=== PATIENT | female | born 1990 | race Hispanic/Latino ===

== ENCOUNTER 2017-04-19 19:20 | Emergency (ER) | payer BC, OTHER ==
[2017-04-19 20:03] VITALS: BP 143/99
[2017-04-19 20:31] LABS: Basophils % (Auto) 0.9 % (0.0-1.8); Eosinophils % (Auto) 1.3 % (0.0-4.3); Hematocrit 41.1 % (30.3-42.9); Hemoglobin 13.9 gm/dl (10.1-14.3); Mean Corpuscular HGB Conc 34 % (30-34); Mean Corpuscular Hemoglobin 30 pg (28-32); Mean Corpuscular Volume 88 fl (79-97); Platelet Count 248 K/mm3 (140-440); Red Blood Count 4.66 M/mm3 (3.65-5.03); Red Cell Distribution Width 13.2 % (13.2-15.2); White Blood Count 13.2 K/mm3 (4.5-11.0)
--- NOTE | 2017-04-19 20:32 | Cat Scan Report ---
FINAL REPORT PROCEDURE: CT HEAD/BRAIN WO CON TECHNIQUE: Computerized tomography of the head was performed without contrast material. HISTORY: neuro deficits \T\lt; 6hrs or sx present upon awakening COMPARISON: No prior studies are available for comparison. FINDINGS: Skull and scalp: Normal. Paranasal sinuses: A polypoid lesion measuring 1.3 x 1.6 centimeters is noted in the right maxillary sinus most likely representing a mucous retention cyst. Ventricles and subarachnoid spaces: Normal. Cerebrum: No evidence of hemorrhage, acute infarction or mass . Cerebellum and brainstem: No evidence of hemorrhage, acute infarction or mass. Vasculature: Normal. Comments: None. IMPRESSION: No acute intracranial abnormality
[2017-04-19 20:42] LABS: Creatine Kinase MB < 1.0 ng/mL (0.0-4.0)
[2017-04-19 20:43] LABS: Anion Gap 17 mmol/L; BUN/Creatinine Ratio 8.75; Blood Urea Nitrogen 7 mg/dL (7-17); Carbon Dioxide 22 mmol/L (22-30); Chloride 104.1 mmol/L (98-107); Glucose 99 mg/dL (65-100); Potassium 3.2 mmol/L (3.6-5.0); Sodium 140 mmol/L (137-145)
[2017-04-19 20:45] LABS: Erythrocyte Sedimentation Rate 14 mm/Hr (0-20)
[2017-04-19 20:46] LABS: Creatine Kinase 82 units/L (30-135)
[2017-04-19 21:33] LABS: INR 1.11 (0.87-1.13)
== END 2017-04-20 03:00 | disposition left against medical advice (07) ==
LOC: ED 19:20
DX: F41.0 Panic disorder [episodic paroxysmal anxiety] (principal); Z53.21 Procedure and treatment not carried out due to patient leaving prior to being seen by health care provider
CPT/HCPCS: 36415; 70450; 80048; 82140; 82550; 82553; 83880; 84439; 84443; 84484; 84703; 85025; 85610; 85652; 85670; 85730; 86140; 93005; 93010

== ENCOUNTER 2017-04-24 11:24 | Outpatient (CLI) | payer BC ==
--- NOTE | 2017-04-24 16:06 | Magnetic Resonance Report ---
MRI CERVICAL SPINE WITHOUT CONTRAST: 04/24/17 12:57:00 CLINICAL: Cervical myelopathy. TECHNIQUE: Sagittal T1,T2 and STIR and axial gradient T2* sequences on a 1.5 Evelina magnet. FINDINGS:Normal vertebral body height, alignment and disc spaces. Normal marrow signal. Decreased T2 disc signal at C2-3 and C3-4. The rest of the discs have normal signal. The cerebellar tonsils are in normal position. The spinal cord is normal size with normal signal. No cord lesion. C2-3: Intact. C3-4:Circumferential bulge of the disc producing partial effacement of the thecal sac but no cord compression. Small right paracentral focal disc protrusion producing mild narrowing of the right neural foramen. Moderate size right uncal osteophytes contribute to the right neural foraminal narrowing. C4-5: Intact. C5-6:Intact. C6-7:Intact. C7-T1:Intact. IMPRESSION: 1. C3-4 degenerative disc disease with a circumferential disc bulge, small right paracentral focal disc protrusion and right uncal osteophytes producing mild right neural foraminal narrowing at C3-4. 2. The rest of the exam is normal. 3. No cord lesion.
== END 2017-04-24 11:25 | disposition home or self-care (01) ==
LOC: MRI 11:24
PROVIDERS: ATTEND Emergency Medicine
DX: M50.11 Cervical disc disorder with radiculopathy, high cervical region (principal); M50.01 Cervical disc disorder with myelopathy, high cervical region; G95.9 Disease of spinal cord, unspecified; I10 Essential (primary) hypertension; F17.200 Nicotine dependence, unspecified, uncomplicated
CPT/HCPCS: 72141

== ENCOUNTER 2018-02-02 14:48 | Emergency (ER) | payer BC ==
[2018-02-02 15:04] VITALS: BP 135/91
[2018-02-02] MEDS ORDERED: ASPIRIN PO ONE (15:05)
--- NOTE | 2018-02-02 15:40 | Emergency Department Report ---
Yolanda Doc - Documentation Documentation: He is a 27-year-old female who is presenting with chest pain. Patient states pain is worse when she moves. She works as a [employer] and she does a lot of pushing pulling and lifting and stretching grabbing different equipment. Patient states is worse when she is moving her arms. Patient denies any shortness of breath pleuritic pain nausea vomiting cough. Patient states pain has been present for approximately 2 weeks. Patient states she called her primary doctor to get a visit to tolerate it be best for her to come to the emergency department to be ruled out for life-threatening conditions. EKG is within normal limits. There is a normal axis normal intervals no ST segment elevation or depressions with a rate of 75 was normal sinus rhyth patients will undergo a chest x-ray 1 troponin to rule out cardiac injury. Micheal
[2018-02-02 15:42] LABS: Basophils # (Auto) 0.1 K/mm3 (0.0-0.1); Basophils % (Auto) 0.9 % (0.0-1.8); Eosinophils # (Auto) 0.2 K/mm3 (0.0-0.4); Eosinophils % (Auto) 1.4 % (0.0-4.3); Hemoglobin 12.9 gm/dl (10.1-14.3); Lymphocytes # (Auto) 4.1 K/mm3 (1.2-5.4); Lymphocytes % (Auto) 35.8 % (13.4-35.0); Mean Corpuscular HGB Conc 33 % (30-34); Mean Corpuscular Hemoglobin 30 pg (28-32); Mean Corpuscular Volume 90 fl (79-97); Monocytes # (Auto) 0.6 K/mm3 (0.0-0.8); Monocytes % (Auto) 4.9 % (0.0-7.3); Platelet Count 219 K/mm3 (140-440); Red Blood Count 4.33 M/mm3 (3.65-5.03); Red Cell Distribution Width 12.5 % (13.2-15.2)
[2018-02-02 15:59] LABS: BUN/Creatinine Ratio 11; Blood Urea Nitrogen 9 mg/dL (7-17); Calcium 9.5 mg/dL (8.4-10.2); Hemolysis Index 6
--- NOTE | 2018-02-02 17:01 | Emergency Department Report ---
ED Chest Pain HPI - General Chief Complaint: Chest Pain Stated Complaint: CHEST PAIN Time Seen by Provider: 02/02/18 15:33 Source: patient Mode of arrival: Ambulatory Limitations: No Limitations - History of Present Illness Initial Comments: He is a 27-year-old female who is presenting with chest pain. Patient states pain is worse when she moves. She works as a [employer] attack and she does a lot of pushing pulling and lifting and stretching grabbing different equipment. Patient states is worse when she is moving her arms. Patient denies any shortness of breath pleuritic pain nausea vomiting cough. Patient states pain has been present for approximately 2 weeks. Patient states she called her primary doctor to get a visit to tolerate it be best for her to come to the emergency department to be ruled out for life-threatening conditions. - Related Data Previous Rx's Medication Instructions Recorded Last Taken Type Famotidine/Ca Carb/Mag Hydrox 1 each PO DAILY #14 tab.chew 02/11/16 Unknown Rx [Pepcid Complete Tablet Chew] oxyCODONE /ACETAMINOPHEN [Percocet 1 tab PO Q12H PRN #10 tablet 02/11/16 Unknown Rx 5/325] Ibuprofen [Motrin] 800 mg PO Q8HR PRN #20 tablet 02/02/18 Unknown Rx methOCARBAMOL [Robaxin TAB] 500 mg PO Q6H PRN #15 tablet 02/02/18 Unknown Rx traMADol [Ultram] 50 mg PO Q6HR PRN #12 tablet 02/02/18 Unknown Rx Allergies Allergy/AdvReac Type Severity Reaction Status Date / Time cephalexin monohydrate AdvReac Unknown Verified 02/10/16 12:35 [From Keflex] Heart Score - HEART Score History: Slightly suspicious EKG: Normal Age: < 45 Risk factors: No known risk factors Troponin: < normal limit HEART Score: 0 ED Review of Systems ROS: Stated complaint: CHEST PAIN Other details as noted in HPI Comment: All other systems reviewed and negative ED Past Medical Hx - Past Medical History Hx Hypertension: Yes Hx Diabetes: Yes Additional medical history: Hypercholesterolemia, prediabetes - Social History Smoking Status: Current Every Day Smoker Substance Use Type: None - Medications Home Medications: Home Medications Medication Instructions Recorded Confirmed Last Taken Type Famotidine/Ca Carb/Mag Hydrox 1 each PO DAILY #14 tab.chew 02/11/16 Unknown Rx [Pepcid Complete Tablet Chew] oxyCODONE /ACETAMINOPHEN [Percocet 1 tab PO Q12H PRN #10 tablet 02/11/16 Unknown Rx 5/325] Ibuprofen [Motrin] 800 mg PO Q8HR PRN #20 tablet 02/02/18 Unknown Rx methOCARBAMOL [Robaxin TAB] 500 mg PO Q6H PRN #15 tablet 02/02/18 Unknown Rx traMADol [Ultram] 50 mg PO Q6HR PRN #12 tablet 02/02/18 Unknown Rx ED Physical Exam - General Limitations: No Limitations General appearance: alert, in no apparent distress - Head Head exam: Present: atraumatic, normocephalic - Eye Eye exam: Present: normal appearance - ENT ENT exam: Present: mucous membranes moist - Neck Neck exam: Present: normal inspection - Respiratory Respiratory exam: Present: normal lung sounds bilaterally. Absent: respiratory distress - Cardiovascular Cardiovascular Exam: Present: regular rate, normal rhythm. Absent: systolic murmur, diastolic murmur, rubs, gallop - GI/Abdominal GI/Abdominal exam: Present: soft, normal bowel sounds - Extremities Exam Extremities exam: Present: normal inspection - Back Exam Back exam: Present: normal inspection - Neurological Exam Neurological exam: Present: alert, oriented X3 - Psychiatric Psychiatric exam: Present: normal affect, normal mood - Skin Skin exam: Present: warm, dry, intact, normal color. Absent: rash ED Course Vital Signs 02/02/18 15:01 Temperature 98.5 F Pulse Rate 87 Respiratory 18 Rate Blood Pressure 135/91 O2 Sat by Pulse 98 Oximetry ED Medical Decision Making - Lab Data Result diagrams: 02/02/18 15:21 02/02/18 15:21 - EKG Data -: EKG Interpreted by Me EKG shows normal: sinus rhythm, axis, intervals, QRS complexes, ST-T waves - EKG Data Interpretation: normal EKG - Radiology Data Radiology results: image reviewed interpreted by me: Chest x-ray is within normal limits - Medical Decision Making She'll be treated for chest wall pain be given medicines for symptomatic relief. Critical care attestation.: If time is entered above; I have spent that time in minutes in the direct care of this critically ill patient, excluding procedure time. ED Disposition Clinical Impression: Chest wall pain Disposition: DC-01 TO HOME OR SELFCARE Is pt being admited?: No Does the pt Need Aspirin: No Condition: Stable Instructions: Chest Pain (ED) Referrals: DUNCAN HANCOCK MD [Primary Care Provider] - 3-5 Days Forms: Work/School Release Form(ED)
--- NOTE | 2018-02-02 17:14 | XRay Report ---
FINAL REPORT PROCEDURE: Chest. TECHNIQUE: PA and lateral views. HISTORY: Mid chest pain for 2 weeks. COMPARISON: No prior studies are available for comparison. FINDINGS: The heart and mediastinum appear normal. The lungs are clear and well expanded. There are no pleural effusions. The soft tissues and regional skeleton are unremarkable. IMPRESSION: Normal study.
== END 2018-02-02 17:05 | disposition home or self-care (01) ==
LOC: ED 14:48
DX: R07.89 Other chest pain (principal); I10 Essential (primary) hypertension; E11.9 Type 2 diabetes mellitus without complications; E78.00 Pure hypercholesterolemia, unspecified; F17.200 Nicotine dependence, unspecified, uncomplicated
CPT/HCPCS: 36415; 71046; 80048; 84484; 85025; 93005; 93010; 99284

== ENCOUNTER 2018-04-16 07:44 | Outpatient (CLI) | payer BC ==
[2018-04-16 08:10] LABS: Hemoglobin 13.8 gm/dl (10.1-14.3); Mean Corpuscular HGB Conc 34 % (30-34); Mean Corpuscular Hemoglobin 30 pg (28-32); Mean Corpuscular Volume 91 fl (79-97); Platelet Count 224 K/mm3 (140-440); Red Blood Count 4.53 M/mm3 (3.65-5.03); Red Cell Distribution Width 12.7 % (13.2-15.2)
[2018-04-16 08:32] LABS: Alanine Aminotransferase 19 units/L (7-56); Albumin 4.1 g/dL (3.9-5); BUN/Creatinine Ratio 16; Blood Urea Nitrogen 13 mg/dL (7-17); Calcium 9.9 mg/dL (8.4-10.2); Hemolysis Index 1
== END 2018-04-16 07:45 | disposition home or self-care (01) ==
LOC: LAB 07:44
PROVIDERS: ATTEND Family Medicine
DX: Z00.01 Encounter for general adult medical examination with abnormal findings (principal); I10 Essential (primary) hypertension; R53.83 Other fatigue; R79.89 Other specified abnormal findings of blood chemistry; Z88.1 Allergy status to other antibiotic agents
CPT/HCPCS: 36415; 80053; 82306; 83036; 84436; 84443; 85027

== ENCOUNTER 2019-03-26 10:23 | Outpatient (CLI) | payer BC ==
--- NOTE | 2019-03-26 13:05 | XRay Report ---
PA AND LATERAL CXR HISTORY: Cough COMPARISON: None available. FINDINGS: Cardiomediastinal silhouette: Normal cardiac size. Normal mediastinal contours. Lungs: Normal expansion. Normal lung aeration. No pleural effusions. No pneumothorax. Pulmonary vascularity: Normal. Support hardware: None. Additional findings: None. IMPRESSION: Normal chest. Signer Name: Humberto Lucas MD Signed: 03/26/2019 1:00 PM Workstation Name: [id number]
== END 2019-03-26 10:24 | disposition home or self-care (01) ==
LOC: XRAY 10:23
PROVIDERS: ATTEND Nurse Practitioner Family
DX: R05 Cough (principal); I10 Essential (primary) hypertension; K21.9 Gastro-esophageal reflux disease without esophagitis
CPT/HCPCS: 71046